=== PATIENT | male | born 1960 | race Caucasian/White ===

== ENCOUNTER 2020-03-14 23:37 | Emergency (ER) | payer BC ==
[2020-03-15] LABS: HEMOGLOBIN 15.4 gm/dl (14.0-17.5); RED BLOOD COUNT 5.51 M/UL (4.20-5.50)
[2020-03-15 00:19] LABS: BUN/CREATININE RATIO 16 (0-10)
[2020-03-15] MEDS ORDERED: PERCOCET 5/325 T1 EA PO (02:06)
== END 2020-03-15 05:35 | disposition home or self-care (01) ==
LOC: ER1 23:37
PROVIDERS: Family Medicine
DX: R10.9 Unspecified abdominal pain (principal); K42.9 Umbilical hernia without obstruction or gangrene; I10 Essential (primary) hypertension; Z87.81 Personal history of (healed) traumatic fracture
CPT/HCPCS: 80053; 81001; 83690; 85025; 93005; 96374; 96375; 96376; 99284; J1885; J2270; J2405

== ENCOUNTER → 2020-03-19 | Outpatient (CLI) | payer BC ==
[~2020-03-19] MED LIST: PERCOCET 5/325 T1 EA PO
== END ==
LOC: EMI 08:51
DX: M54.5 Low back pain (principal); M51.36 Other intervertebral disc degeneration, lumbar region
CPT/HCPCS: 72148